=== PATIENT | female | born 2000 | race Two or more races ===

== ENCOUNTER 2024-01-11 09:18 | Emergency (ER) | payer OTHER ==
[~2024-01-11] VITALS: Ht 170.2 cm; Wt 104.3 kg
[2024-01-11 09:41] VITALS: TEMP 100.6
[2024-01-11] MEDS ORDERED: predniSONE 20 MG TABLET ONE (09:59)
[2024-01-11] MEDS ORDERED: IBUPROFEN 600 MG TABLET ONE (09:59)
[2024-01-11] MEDS: IBUPROFEN 600 MG TABLET PO ONE (10:00)
[2024-01-11] MEDS: predniSONE 50 MG TABLET PO ONE (10:00)
[2024-01-11] MEDS ORDERED: PRED50TA PO (10:20)
[2024-01-11] MEDS ORDERED: IBUP-1953 PO (10:20)
[2024-01-11] MEDS ORDERED: AMOX-430 PO (10:20)
[2024-01-11] MEDS ORDERED: AMOX/CLAVULANATE 875 MG TABLET ONE (10:38)
[2024-01-11] MEDS: AMOX/CLAVULANATE 875 MG TABLET PO ONE (10:44)
[2024-01-11 10:57] VITALS: BP 125/80; O2SAT 96
== END 2024-01-11 10:56 | disposition home or self-care (01) ==
LOC: ER 09:37
DX: J18.9 Pneumonia, unspecified organism (principal); R11.2 Nausea with vomiting, unspecified; Z20.822 Contact with and (suspected) exposure to COVID-19; Z60.2 Problems related to living alone
CPT/HCPCS: 99284; 71045; 87426; J7512